=== PATIENT | male | born 1945 ===

== ENCOUNTER 2020-01-05 06:30 | Observation (INO) ==
[~2020-01-05 06:30] MED LIST: Buffered Lidocaine 1% SYRIN 1 ml INTRADERM ONE; Lactated Ringers 1000 ml BAG 1,000 ML IV SCH
[2020-01-05] MEDS ORDERED: EPINEPHrine SYR 0.1MG/ML 10 ml SYRINGE ONE (06:52)
[2020-01-05] MEDS ORDERED: Rocuronium 50 mg VIAL 10 mg/ml 5 ml VIAL (50 mg) ONE (06:53)
[2020-01-05] MEDS ORDERED: Succinylcholine 200 mg VIAL 20 mg/ml 10 ml VIAL (200 mg) ONE (06:53)
[2020-01-05] MEDS ORDERED: Phenylephrine IV 10 MG/ML 1 ml VIAL ONE (06:55)
[2020-01-05] MEDS ORDERED: EPHEDrine (Pressors) 50 MG/ML VIAL ONE (06:57)
[2020-01-05] MEDS ORDERED: Sterile Water for Inj 10 ML ONE (06:57)
[2020-01-05] MEDS ORDERED: Sevoflurane BOTTLE ONE (07:01)
[2020-01-05] MEDS ORDERED: Propofol 10 MG/ML 20 ML BTL ONE ×3 (07:01→13:53)
[2020-01-05] MEDS ORDERED: Lidocaine 2% PF 5 ML VIAL ONE ×2 (07:01→07:33)
[2020-01-05] MEDS ORDERED: Buffered Lidocaine 1% SYRIN 1 ml INTRADERM ONE (07:12)
[2020-01-05] MEDS ORDERED: ceFAZolin 2 GM PREMIX 2 GM/50 ML BAG ONE (07:12)
[2020-01-05] MEDS ORDERED: ROPIVACAINE 5 MG/ML 30 ML BTL (0.5%) ONE ×2 (07:31→07:33)
[2020-01-05] MEDS ORDERED: Midazolam 2 mg/2 ml VIAL 1 mg/ml 2 ml VIAL (2 mg) ONE (07:33)
[2020-01-05] MEDS ORDERED: Dexmedetomidine 200 mcg/2 ml 2 ml VIAL (200 mcg) ONE (07:33)
[2020-01-05] MEDS ORDERED: Midazolam 5 mg/5 ml VIAL 1 mg/ml 5 ml VIAL (5 mg) ONE (07:46)
[2020-01-05] MEDS ORDERED: fentaNYL 100 mcg/2 ml 50 MCG/ML VIAL ONE (07:46)
[2020-01-05] MEDS ORDERED: Magnesium Hydroxide LIQ 30 ML UDC PO PRN (09:20)
[2020-01-05] MEDS ORDERED: diPHENhydraMINE 25 mg TAB PO PRN (09:20)
[2020-01-05] MEDS ORDERED: Ondansetron 4 mg VIAL 2 MG/ML 2 ml VIAL IV PRN (09:20)
[2020-01-05] MEDS ORDERED: oxyCODONE/Acetamin 5/325 mg TAB PO PRN ×3 (09:20→10:34)
[2020-01-05] MEDS ORDERED: diPHENhydraMINE IV 50 MG/ML 1 ml VIAL (BENADRYL) IV PRN (09:20)
[2020-01-05] MEDS ORDERED: Lactulose 30 ml UDC PO PRN (09:20)
[2020-01-05] MEDS ORDERED: Morphine 2 MG/ML SYRINGE IV PRN (09:20)
[2020-01-05] MEDS ORDERED: Ondansetron ODT 4 mg TAB 4 MG TAB PO PRN (09:20)
[2020-01-05] MEDS ORDERED: Dexamethasone IV 4 MG/ML VIAL 1 ml VIAL ONE (09:48)
[2020-01-05] MEDS ORDERED: Ondansetron 4 mg VIAL 2 MG/ML 2 ml VIAL ONE (09:48)
[2020-01-05] MEDS ORDERED: Lactated Ringers 1000 ml BAG 1,000 ML IV SCH (10:00)
[2020-01-05] MEDS ORDERED: DiMENhydriNATE IV 50 mg/ml 1 ml VIAL IV PUSH PRN (10:34)
[2020-01-05] MEDS ORDERED: Naloxone 0.4 mg VIAL 0.4 mg/ml 1 ml VIAL IV PRN (10:34)
[2020-01-05] MEDS ORDERED: HYDROmorphone 1 MG/1 ML SYRINGE IV PRN (10:34)
[2020-01-05] MEDS ORDERED: ceFAZolin 1 GM ADVAN 1 GM in NS 0.9% 50 ML 50 ML IVPB SCH (16:30)
[2020-01-05] MEDS ORDERED: CMC:Simvastatin 20 mg TAB (NF) PO SCH (18:00)
[2020-01-05 18:17] VITALS: BP 136/78
[2020-01-05] MEDS ORDERED: Magnesium Hydroxide LIQ 30 ML UDC PO SCH (21:00)
[2020-01-06] MEDS ORDERED: Polyethylene Glycol 3350 17 GM PACKET PO PRN (00:01)
[2020-01-06] MEDS ORDERED: Vitamin THERAPEUTIC TAB PO SCH (09:00)
== END 2020-01-05 18:15 | disposition home or self-care (01) ==
LOC: INTOOBSV 06:30 → AA 06:30 → SSU 14:19
PROVIDERS: ADMIT Orthopaedic Surgery Adult Reconstructive Orthopaedic Surgery; ATTEND Orthopaedic Surgery Adult Reconstructive Orthopaedic Surgery